=== PATIENT | female | born 1960 | race Caucasian/White ===

== ENCOUNTER 2025-06-28 07:55 | Outpatient (OUT) | payer MEDICARE, SELFPAY ==
--- OUTSIDE RECORDS SUMMARY | 2024-05-26 10:15 | XMS_ITS | Encounter Summary ---
Author Organization [facility] tem Address [facility] [id number] [address] [place] [address] Care Team Providers Care Hoist Worker Name Role Phone Cleveland Farah MD Primary Care Provider [phone] Reason for Visit * ReasonCommentsAnnual Exammedicare Encounter Details DateTypeDepartmentCare Team (Latest Contact Info)Aonsmzblwub73/06/2024 10:15 AM ESTOffice Visit [facility] [address] [place] [phone] Marcus Hernandez MD [address]. Provider retired 10/19/24 [place], [place] [phone] Routine general medical examination at a health care facility (Primary Dx); Acquired hypothyroidism; Pure hypercholesterolemia; Encounter for screening mammogram for malignant neoplasm of breast; Coronary artery disease involving [place] coronary artery of [place] heart without angina pectoris Social History Tobacco UseTypesPacks/DayYears UsedDateSmoking Tobacco: FormerCigarettes Smokeless Tobacco: NeverAlcohol UseStandard Drinks/WeekCommentsNot Currently0 (1 standard drink = 0.6 oz pure alcohol)Overall Financial Resource Strain (CARDIA) AnswerDate RecordedHow hard is it for you to pay for the very basics like food, housing, medical care, and heating?Not hard at all11/25/2024PHQ-2AnswerDate RecordedTotal Yqjye79507/26/2024PRAPARE - TransportationAnswerDate RecordedIn the past 12 months, has lack of transportation kept you from medical appointments or from getting medications?No11/25/2024In the past 12 months, has lack of transportation kept you from meetings, work, or from getting things needed for daily living?No11/25/2024UDIT-CAnswerDate RecordedQ1: How often do you have a drink containing alcohol?Never05/27/2025Q2: How many drinks containing alcohol do you have on a typical day when you are drinking?Patient does not drink 05/27/2025Q3: How often do you have six or more drinks on one occasion?Never 05/27/2025Housing InstabilityAnswerDate RecordedAre you worried or concerned that in the next two months you may not have stable housing that you own, rent or stay in as a part of a household?No11/25/2024hildcareAnswerDate Recorded BicmngmurUcqogon79/30/2019EmploymentAnswerDate RecordedEmploymentUnknown 12/17/2018Hunger ScreeningAnswerDate RecordedWithin the past 12 months we worried whether our food would run out before we got money to buy more.Never True05/27/2025Within the past 12 months the food we bought just didn't last and we didn't have money to get more.Never True05/27/2025Purpose - LifeAnswerDate RecordedPurpose and direction in ovprJftrgnr93/25/2021CommentsNoSex and Gender InformationValueDate RecordedSex Assigned at BirthNot on fileLegal Sex Poevbk6402/23/2015 11:53 AM EDTGender IdentityNot on fileSexual OrientationNot on filedocumented as of this encounter Last Filed Vital Signs Vital SignReadingTime TakenCommentsBlood Lmxcirqv063/8211 10:07 AM EST Uvnxr162905/26/2024 10:07 AM IBGTvaupunnygy05.8 ??C (98.2 ??F)05/26/2024 10:07 AM ESTRespiratory Drzj794507/26/2023 10:07 AM ESTOxygen Qezpxxbciu28%05/26/2024 10:07 AM ESTInhaled Oxygen Concentration--Vjgoty14 kg (161 lb)05/26/2024 10:07 AM EST Dfpode693.8 cm (5' 2.5 )05/26/2024 10:07 AM ESTBody Mass Index28.9805/26/2024 10:07 AM ESTdocumented in this encounter Functional Status * AUDIT-C ScoreAnswerDate of WohetgwphgAegcgb993 9:55 AM Libby Rose LPN * QuestionAnswerDate of AssessmentAuthorQ1: How often do you have a drink containing alcohol?Never05/27/2025 9:55 AM Libby Rose LPNQ2: How many drinks containing alcohol do you have on a typical day when you are drinking?Patient does not drink05/27/2025 9:55 AM Libby Rose LPNQ3: How often do you have six or more drinks on one occasion?Never05/27/2025 9:55 AM Libby Rose LPN documented as of this encounter Patient Instructions * Patient Instructions* Marcus Hernandez MD - 05/26/2024 10:15 AM EST Medicare Available Services Admin of Pneumococcal Vaccine: Recommended Admin of influenza vaccine: Recommended Admin of Hep B vaccine: Not applicable AAA ultrasound screening: Not applicable Screening mammography: Recommended Screening pap and pelvic exam: Not applicable Prostate cancer screening: Not applicable Colorectal cancer screening tests: Recommended DM outpatient self management training services: Not applicable Bone mass measurements: Not applicable Screening for glaucoma: Completed Cardiovascular screening blood tests: Completed DM screening blood tests: Completed Smoking cessation counseling: Completed Counseling to prevent tobacco use: Completed Screening/counseling to reduce alcohol misuse: Completed Behavioral therapy for obesity: Not applicable STI infection screening and behavioral counseling: Not applicable Medical nutrition therapy services for DM: Not applicable Medical nutrition therapy services: Not applicable documented in this encounter Progress Notes * Marcus Hernandez MD - 05/26/2024 10:15 AM EST Images from the original note were not included. [address] [facility] [phone] Subjective: Kristy Thurston is a 64 y.o. female who presents for a Medicare Annual Wellness exam. The following portions of the patient's history were reviewed and updated as appropriate: Health Risk Assessment, allergies, past medical history, past surgical history, social history, family history, and immunization history Accompanied by: self History Provided By: self Language and Other Communication Barriers: Primary Language Spoken: Kenyan Highest Level of Education Completed: high school diploma/GED Are You Happy With How Well You Read? yes Diet and Physical Activity: Current Prescribed Diet: Regular Diet How would you describe the condition of your mouth and teeth, including false teeth and dentures? Good Exercise Frequency: Daily Types of Exercise: Walking Health Risk Assessment: Cognitive Screening Do you have trouble remembering or recalling facts or events?: No Do family members or caregivers report that you have difficulty remembering things?: No Depression Screening Little interest or pleasure in doing things: Not at all Feeling down, depressed, or hopeless: Not at all Trouble falling or staying asleep, or sleeping too much: Not at all Feeling tired or having little energy: Not at all Poor appetite or overeating: Not at all Feeling bad about yourself - or that you are a failure or have let yourself or your family down: Not at all Trouble concentrating on things, such as reading the newspaper or watching television: Not at all Moving or speaking so slowly that other people could have noticed. Or the opposite - being so fidgety or restless that you have been moving around a lot more than usual: Not at all Thoughts that you would be better off , or of hurting yourself in some way: Not at all End of Life Planning Do you have a living will?: (!) No Do you have a durable power of cigar brander?: (!) No Hearing Assessment Do you strain or struggle to hear/understand conversations?: No Do you have trouble hearing the television or radio when others do not?: No Does your family ever voice concerns about your hearing?: No Do you wear hearing aid/s?: No Lifestyle Assessment Do you smoke or use smokeless tobacco?: No If you smoke or use smokeless tobacco, are you ready to quit?: NA Are you exposed to secondhand smoke?: No On average, how many drinks of alcohol do you consume in a week?: None Do you exercise for 30 or more minutes on average at least 3 days a week?: Always Do you have any tooth, denture, or oral problems?: No Do you snore or has anyone told you that you snore?: (!) Yes Do you try to eat a balanced diet?: Yes Do you experience leakage of urine, also known as urinary incontinence?: Never Do you have difficulty performing any of these activities? (check all that apply): None Do you have difficulty performing any of these activities? (check all that apply): None Personal Health During the past 4 weeks, how would you rate your overall health?: Very Good Do you understand how to take all of your medications?: Yes How confident are you that you can control and manage most of your health problems?: Very confident In the past 12 months, how many times have you been hospitalized?: (!) 2 or more Safety Assessment Do you have throw rugs on the floor?: No Do you feel safe at your home?: Yes Do you feel unsteady when walking?: No Are you having difficulty with driving?: No Do you have trouble seeing?: No What assistive device do you use? (check all that apply): None Vitals: Vitals: 05/26/24 1007 BP: 120/82 Pulse: 58 Resp: 18 Temp: 36.8 ??C (98.2 ??F) SpO2: 99% Body mass index is 28.98 kg/m??. History: Hospitalizations during the past 12 months: yes Patient Active Problem List Diagnosis Date Noted Arthritis of right hand 12/17/2018 Dyspepsia 12/17/2018 Acquired hypothyroidism 12/17/2018 Past Medical History: Diagnosis Date Hypothyroidism Past Surgical History: Procedure Laterality Date APPENDECTOMY HYSTERECTOMY History reviewed. No pertinent family history. Social History Tobacco Use Smoking status: Former Types: Cigarettes Smokeless tobacco: Never Substance Use Topics Alcohol use: Not Currently Allergies: Allergies Allergen Reactions No Known Drug Allergies Current Outpatient Medications Medication Sig Dispense Refill aspirin 81 mg Take 1 tablet (81 mg total) by mouth in the morning. atorvastatin (LIPITOR) 80 mg tablet Take 1 tablet (80 mg total) by mouth. levothyroxine (SYNTHROID, LEVOTHROID) 100 MCG tablet take 1 tablet every morning 90 tablet 3 ticagrelor (BRILINTA) 90 mg tablet Take 1 tablet (90 mg total) by mouth. carvediloL (COREG) 3.125 mg tablet Take 1 tablet (3.125 mg total) by mouth. No current facility-administered medications for this visit. There is no immunization history on file for this patient. Medication Adherence: Original 4-item Morisky Scale Do you ever forget to take your medicine? no Are you careless at times about taking your medicine? no When you feel better, do you sometimes stop taking your medicine? no Sometimes if you feel worse when you take your medicine, do you stop taking it? no Score: 4 Scoring: high-low; yes=0 no=1. Range 0-4. By reversing the wording of four questions about the way patients might experience drug omissions, the sum of yes answers would provide a composite measureof non-adherence. Higher scores indicate higher adherence. Cognitive Screening: Clock Drawing Test: Normal Mini-Cog: Patient Concerns for Cognitive Function: no Family Concerns for Cognitive Function: no Sensory Screening: Hearing right ear: normal Hearing left ear: normal Can you hear what a person says without seeing his/her face, if spoken in a normal voice from across the room? Yes Can you hear what a person says without seeing his/her face, if that person whispers to you from across a room? Yes Do you use a hearing aid: No Review of Systems: Review of Systems Objective: Physical Exam Office Visit on 12/18/2023 Component Date Value Ref Range Status Bedside glucose 12/18/2023 99 65 - 99 mg/dL Final Advanced Directives: Living Will: No DPA for Health Care: No Discussion and Summary: Risk findings: none Personalized Prevention Plan Services: Specialty Evaluation Advised:N/A Preventative Programs Recommended: N/A Prevention Counseling and Education Materials:N/A Diseases: N/A Immunizations: N/A Nutrition: N/A Activity/Exercise/Safety/Misc: N/A The above recommendations were discussed with the patient. Medicare Available Services: Medicare Available Services Admin of Pneumococcal Vaccine: Recommended Admin of influenza vaccine: Recommended Admin of Hep B vaccine: Not applicable AAA ultrasound screening: Not applicable Screening mammography: Recommended Screening pap and pelvic exam: Not applicable Prostate cancer screening: Not applicable Colorectal cancer screening tests: Recommended DM outpatient self management training services: Not applicable Bone mass measurements: Not applicable Screening for glaucoma: Completed Cardiovascular screening blood tests: Completed DM screening blood tests: Completed Smoking cessation counseling: Completed Counseling to prevent tobacco use: Completed Screening/counseling to reduce alcohol misuse: Completed Behavioral therapy for obesity: Not applicable STI infection screening and behavioral counseling: Not applicable Medical nutrition therapy services for DM: Not applicable Medical nutrition therapy services: Not applicable Copy to patient and copy in patient's medical record. Assessment/Plan: Kristy Thurston has been seen for a well visit today. Preventative recommendations were reviewed. Any chronic conditions that have been addressed include those listed below. Kristy was seen today for annual exam. Diagnoses and all orders for this visit: Routine general medical examination at a health care facility Acquired hypothyroidism Pure hypercholesterolemia Encounter for screening mammogram for malignant neoplasm of breast - Mammography screening bilateral with CAD; Future Coronary artery disease involving [place] coronary artery of [place] heart without angina pectoris Follow Up: Mammogram ordered Colonoscopy ordered Labs are utd * Libby Sierra LPN - 05/26/2024 10:15 AM EST Patient stated she would call to get the test scheduled. documented in this encounter Plan of Treatment DateTypeDepartmentCare Team (Latest Contact Info)Jbggceebygu38/07/2026 9:30 AM EDTOffice Visit [facility] [address] [place] [phone] Cleveland Farah MD [address] [place] [phone] 11/28/2025 9:[address] [facility] [address] [place] [address] 05/29/2026 10:00 AM ESTOffice Visit [facility] [address] [place] [phone] Cleveland Farah MD [address] [place] [address] NameTypePriorityAssociated DiagnosesOrder ScheduleMammography screening bilateral with CADImagingRoutine Encounter for screening mammogram for malignant neoplasm of breast 1 Occurrences starting 05/26/2024 until 05/26/2025documented as of this encounter Visit Diagnoses Diagnosis Routine general medical examination at a health care facility- Primary Acquired hypothyroidism Unspecified hypothyroidism Pure hypercholesterolemia Encounter for screening mammogram for malignant neoplasm of breast Coronary artery disease involving [place] coronary artery of [place] heart without angina pectoris documented in this encounter Additional Health Concerns AssessmentNoted TimePHQ-9 Depression Total Score: 9:00 AM EST documented as of this encounter Care Teams Team MemberRelationshipSpecialtyStart DateEnd Date Cleveland Farah MD [address] [place] [address] PCP - GeneralInternal Medicine11/26/24documented as of this encounter
--- OUTSIDE RECORDS SUMMARY | 2025-06-24 09:00 | XMS_ITS | Encounter Summary ---
Author Organization [facility] tem Address [facility] [id number] [address] [place] [address] Care Team Providers Care Evaluation Analyst Name Role Phone Cleveland Farah MD Primary Care Provider [phone] Encounter Details DateTypeDepartmentCare Team (Latest Contact Info)Fvkcixcoihm55/05/2025 9:00 AM EST - 06/24/2025 11:59 PM ESTHospital Encounter [facility] [address] [place] [phone] Age-related osteoporosis without current pathological fracture Discharge Disposition: Home Social History Tobacco UseTypesPacks/DayYears UsedDateSmoking Tobacco: FormerCigarettes Smokeless Tobacco: NeverAlcohol UseStandard Drinks/WeekCommentsNot Currently0 (1 standard drink = 0.6 oz pure alcohol)Overall Financial Resource Strain (CARDIA) AnswerDate RecordedHow hard is it for you to pay for the very basics like food, housing, medical care, and heating?Not hard at all11/25/2024PHQ-2AnswerDate RecordedTotal Dodly98907/26/2024PRAPARE - TransportationAnswerDate RecordedIn the past 12 months, [...] stay in as a part of a household?No5ChildcareAnswerDate Recorded KekhyqvbdIvcdscj37/30/2019EmploymentAnswerDate RecordedEmploymentUnknown 12/17/2018Hunger ScreeningAnswerDate RecordedWithin the past 12 months we worried whether our food would run out before we got money to buy more.Never True05/27/2025Within the past 12 months the food we bought just didn't last and we didn't have money to get more.Never True05/27/2025Purpose - LifeAnswerDate RecordedPurpose and direction in wfvcRlibzyn81/25/2021CommentsNoSex and Gender InformationValueDate RecordedSex Assigned at BirthNot on fileLegal Sex Toejin8602/23/2015 11:53 AM EDTGender IdentityNot on fileSexual OrientationNot on filedocumented as of this encounter Medications at Time of Discharge MedicationSigDispense QuantityRefillsLast FilledStart DateEnd Date aspirin 81 mg Take 1 tablet (81 mg total) by mouth in the morning. atorvastatin (LIPITOR) 80 mg tablet Take 1 tablet (80 mg total) by mouth before bedtime.02/07/2025 carvediloL (COREG) 3.125 mg tablet Take 1 tablet (3.125 mg total) by mouth. escitalopram (LEXAPRO) 10 mg tablet Take 1 tablet (10 mg total) by mouth in the morning. 90 tablet levothyroxine (SYNTHROID, LEVOTHROID) 75 MCG tablet Indications:Acquired hypothyroidismTake 1 tablet (75 mcg total) by mouth in the morning. 30 tablet losartan (COZAAR) 25 mg tablet Indications:Coronary artery disease involving [place] coronary artery of [place] heart without angina pectorisTake 1 tablet (25 mg total) by mouth in the morning. 90 tablet ticagrelor (BRILINTA) 90 mg tablet Take 1 tablet (90 mg total) by mouth.4documented as of this encounter Plan of Treatment DateTypeDepartmentCare Team (Latest Contact Info)Pkervldsqut87/07/2026 9:30 AM EDTOffice Visit [facility] [address] [place] [phone] Cleveland Farah MD [address] [place] [address] 11/28/2025 9:00 AM [address]TL[address] [facility] [address] [place] [address] 05/29/2026 10:00 AM ESTOffice Visit [facility] [address] [place] [phone] Cleveland Farah MD [address] [place] [phone] documented as of this encounter Procedures Procedure NamePriorityDate/TimeAssociated DiagnosisCommentsDEXA SCAN CENTRAL KWMOAVGMKqdqifn01/05/2025 9:16 AM EST Age-related osteoporosis without current pathological fracture documented in this encounter Results * Dexa scan central skeletal (06/24/2025 9:16 AM EST)Anatomical RegionLaterality ModalityN/ADXA ScanSpecimen (Source)Anatomical Location / LateralityCollection Method / VolumeCollection TimeReceived Time06/24/2025 3:59 PM EST Narrative 06/24/2025 4:00 PM EST DEXA SCAN CENTRAL SKELETAL: 06/24/2025 PROVIDED HISTORY: * ??65 years old Female * ??Age-related osteoporosis without current pathological fracture COMPARISON: 04/28/2011 TECHNIQUE: Dual X-ray Absorptiometry (DXA) was performed. FINDINGS: LUMBAR SPINE (L1-L4): BMD is 0.848 gm/cm2. T-score is -2.8. LEFT FEMORAL NECK: BMD is 0.808 gm/cm2. T-score is 1.7. LEFT TOTAL FEMUR: BMD is 0.859 gm/cm2. T-score is -1.2. RIGHT FEMORAL NECK: BMD is 0.794 gm/cm2. T-score is -1.8. RIGHT TOTAL FEMUR: BMD is 0.826 gm/cm2. T-score is -1.4. The estimated 10-year probability for a major osteoporotic fracture (utilizing FRAX) is 9.9% and for a hip fracture is 1.4%. IMPRESSION: The exam is considered to be osteopenic by the National Osteoporosis Foundation guidelines. Recommend consideration for initiation of therapy. WHO CLASSIFICATION: Normal: T-score -1.0 or above Osteopenia: T-score -1.1 to < 2.5 Osteoporosis: T-score -2.5 or lower Secondary causes of bone loss should be evaluated if clinically indicated since the etiology of lowBMD cannot be determined by BMD measurement alone. The current National Osteoporosis Foundation guide recommends treating patients with FRAX ten year risk scores of greater than or equal to 3% for hip fracture or greater than or equal to 20% for major osteoporotic fracture, to reduce their fracture risk. Finalized by Ruby oBurne MD on 06/24/2025 4:00 PM Procedure Note Ruby Bourne MD - 06/24/2025 DEXA SCAN CENTRAL SKELETAL: 06/24/2025 PROVIDED HISTORY: * 65 years old Female * Age-related osteoporosis without current pathological fracture COMPARISON: 04/28/2011 TECHNIQUE: Dual X-ray Absorptiometry (DXA) was performed. FINDINGS: LUMBAR SPINE (L1-L4): BMD is 0.848 gm/cm2. T-score is -2.8. LEFT FEMORAL NECK: BMD is 0.808 gm/cm2. T-score is 1.7. LEFT TOTAL FEMUR: BMD is 0.859 gm/cm2. T-score is -1.2. RIGHT FEMORAL NECK: BMD is 0.794 gm/cm2. T-score is -1.8. RIGHT TOTAL FEMUR: BMD is 0.826 gm/cm2. T-score is -1.4. The estimated 10-year probability for a major osteoporotic fracture(utilizing FRAX) is 9.9% and for a hip fracture is 1.4%. IMPRESSION: The exam is considered to be osteopenic by the National OsteoporosisFoundation guidelines. Recommend consideration for initiation oftherapy. WHO CLASSIFICATION: Normal: T-score -1.0 or above Osteopenia: T-score -1.1 to < 2.5 Osteoporosis: T-score -2.5 or lower Secondary causes of bone loss should be evaluated if clinically indicatedsince the etiology of low BMD cannot be determined by BMD measurementalone. The current National Osteoporosis Foundation guide recommends treatingpatients with FRAX ten year risk scores of greater than or equal to 3% forhip fracture or greater than or equal to 20% for major osteoporoticfracture, to reduce their fracture risk. Finalized by Ruby Bourne MD on 06/24/2025 4:00 PM Authorizing ProviderResult TypeResult StatusCleveland Farah MDIMG DXA ORDERABLES Final Result documented in this encounter Visit Diagnoses Diagnosis Age-related osteoporosis without current pathological fracture documented in this encounter Additional Health Concerns AssessmentNoted TimePHQ-9 Depression Total Score: 11:02 AM ESTA Body Mass Index follow-up plan has been documented for the hrmqgvd5705/27/2025 10:26 AM ESTdocumented as of this encounter Care Teams Team MemberRelationshipSpecialtyStart DateEnd Date Cleveland Farah MD [address] [place] [phone] PCP - GeneralInternal Medicine11/26/24documented as of this encounter
--- OUTSIDE RECORDS SUMMARY | 2025-06-28 08:09 | XMS_ITS | Clinical Summary ---
Author Organization [employer] Address [id number] [address] [place] [address] Care Team Providers Care Potato Peeler Name Role Phone Cleveland Farah MD Primary Care Provider [phone] Allergies Active AllergyReactionsCriticalityNoted DateCommentsNo Known Drug Allergies 09/01/2017 Medications MedicationSigDispense QuantityRefillsLast FilledStart DateEnd DateStatus aspirin 81 mg Take 1 tablet (81 mg total) by mouth in the morning.Active ticagrelor (BRILINTA) 90 mg tablet Take 1 tablet (90 mg total) by mouth.4Active carvediloL (COREG) 3.125 mg tablet Take 1 tablet (3.125 mg total) by mouth.Active escitalopram (LEXAPRO) 10 mg tablet Take 1 tablet (10 mg total) by mouth in the morning. 90 tablet 5Active atorvastatin (LIPITOR) 80 mg tablet Take 1 tablet (80 mg total) by mouth before bedtime.5Active levothyroxine (SYNTHROID, LEVOTHROID) 75 MCG tablet Indications:Acquired hypothyroidismTake 1 tablet (75 mcg total) by mouth in the morning. 30 tablet 5Active losartan (COZAAR) 25 mg tablet Indications:Coronary artery disease involving [place] coronary artery of [place] heart without angina pectorisTake 1 tablet (25 mg total) by mouth in the morning. 90 tablet 5Active levothyroxine (SYNTHROID, LEVOTHROID) 50 MCG tablet Indications:Acquired hypothyroidismTake 1 tablet (50 mcg total) by mouth in the morning. 90 tablet 5Discontinued(Dose adjustment) losartan (COZAAR) 25 mg tablet Indications:Coronary artery disease involving [place] coronary artery of [place] heart without angina pectorisTake 1 tablet (25 mg total) by mouth in the morning.Discontinued(Reorder) Active Problems ProblemNoted DateDiagnosed DatePure wmbubgkzbtmlvtfhxskt36/06/2024Routine general medical examination at a health care pkuvlgtp75/06/2024Encounter for screening mammogram for malignant neoplasm of phuoql1405/26/2024oronary artery disease involving [place] coronary artery of [place] heart without angina pectoris 05/26/2024rthritis of right hand12/17/20180779Veklaovng48/30/2019Acquired qhywotbnpiooal47/30/2019 Encounters DateTypeDepartmentCare MhufQejjbzrtxvz85/05/2025 9:00 AM EST - 06/24/2025 11:59 PM ESTHospital Encounter [facility] [address] [place] [phone] Age-related osteoporosis without current pathological fracture Discharge Disposition: Home06/22/20251382Jivvle23/17/2025[facility] [address] [phone] Libby Sierra LPN Coronary artery disease involving [place] coronary artery of [place] heart without angina tvolebcv99/14/2025Refill [facility] [address] [phone] Libby Sierra LPN Coronary artery disease involving [place] coronary artery of [place] heart without angina iyfwqisd46/14/2025Refill [facility] [address] [place], [place] [address] [place] [address] Libby Sierra LPN 05/30/2025Results Follow-Up [facility] [address] [place] [phone] Cleveland Farah MD TSH, Hepatic function panel, CBC auto differential, Dexa scan central skeletal 05/27/2025 10:00 AM ESTOffice Visit [facility] [address] [place] [address] Cleveland Farah MD Encounter for Medicare annual wellness exam (Primary Dx); Coronary artery disease involving [place] coronary artery of [place] heart without angina pectoris; Acquired hypothyroidism; Age-related osteoporosis without current pathological /06/2025Travel 05/06/2025 11:00 AM EDTSupport Visit [facility] [address] [place] [address] Maile Garcia LD 05/04/20257992Mhlmls34/01/2025 9:30 AM EDTClinical Support [facility] Medicine [address] [place] [phone] BP check (Primary Dx)04/20/20257557Osikst22/29/0705Xzcfdm32/24/2025 9:15 AM EDT Office Visit [facility] [address] [place] [phone] Cleveland Farah MD Hepatic steatosis (Primary Dx); Coronary artery disease involving [place] coronary artery of [place] heart without angina pectoris; Primary nigncrgfpedw92/23/2025Travelfrom Last 3 Months Immunizations No known immunizations Social History Tobacco UseTypesPacks/DayYears UsedDateSmoking Tobacco: FormerCigarettes Smokeless Tobacco: Never Tobacco Cessation:Counseling Given: Not Answered Alcohol UseStandard Drinks/WeekCommentsNot Currently0 (1 standard drink = 0.6 oz pure alcohol)Overall Financial Resource Strain (CARDIA)AnswerDate RecordedHow hard is it for you to pay for the very basics like food, housing, medical care, and heating?Not hard at all11/25/2024PHQ-2AnswerDate RecordedTotal Score0 05/26/2025PRAPARE - TransportationAnswerDate RecordedIn the past 12 months, has lack of transportation kept you from medical appointments or from getting medications?No11/25/2024In the past 12 months, has lack of transportation kept you from meetings, work, or from getting things needed for daily living?No 5AUDIT-CAnswerDate RecordedQ1: How often do you have a drink containing alcohol?Never05/27/2025Q2: How many drinks containing alcohol do you have on a typical day when you are drinking?Patient does not drink05/27/2025Q3: How often do you have six or more drinks on one occasion?Never05/27/2025Housing InstabilityAnswerDate RecordedAre you worried or concerned that in the next two months you may not have stable housing that you own, rent or stay in as a part of a household?No5ChildcareAnswerDate RecordedChildcareUnknown 12/17/2018EmploymentAnswerDate AjxqqkmtCuyabcdezmWmkbxtt01/30/2019Hunger ScreeningAnswerDate RecordedWithin the past 12 months we worried whether our food would run out before we got money to buy more.Never True05/27/2025Within the past 12 months the food we bought just didn't last and we didn't have money to get more.Never True05/27/2025Purpose - LifeAnswerDate RecordedPurpose and direction in kxwqKcggvdv06/25/2021CommentsNoSex and Gender Information ValueDate RecordedSex Assigned at BirthNot on fileLegal KlhTsnllr43/06/2015 11:53 AM EDTGender IdentityNot on fileSexual OrientationNot on file Last Filed Vital Signs Vital SignReadingTime TakenCommentsBlood Jvqylaeg868/80107/27/2024 10:23 AM EST Gylql044705/27/2025 9:51 AM VRUSvaqgcmasrg45.8 ??C (98.2 ??F)05/26/2024 10:07 AM ESTRespiratory Bvum230807/27/2024 9:51 AM ESTOxygen Gegdbvwtgc57%05/27/2025 9:51 AM ESTInhaled Oxygen Concentration--Zqajaw69.6 kg (171 lb)05/27/2025 9:51 AM EST Jysbpd406 cm (5' 1.42 )05/27/2025 9:51 AM ESTBody Mass Index31.8705/27/2025 9:51 AM EST Plan of Treatment DateTypeDepartmentCare Team (Latest Contact Info)Obqqzhawtcd22/07/2026 9:30 AM EDTOffice Visit [facility] [address] [place] [phone] Cleveland Farah MD [address] [place], [place] [phone] 11/28/2025 9:00 AM EDTLab [facility] - Lab [address] [place] [phone] 05/29/2026 10:00 AM ESTOffice Visit [facility] [address] [place] [phone] Cleveland Farah MD [address] [place] [phone] Health MaintenanceDue DateLast DoneCommentsDTaP,Tdap and Td Vaccines (1 - Tdap) 02/18/19773518Wywrseimx20/01/1998Zoster (Shingles) Vaccine (1 of 2)02/19/2008 Influenza Pgjuoyk6403/21/2025Statin Use: Czoldcjeehehxe67 Depression Srbskwaki33Fall Risk Qppootxpc87 Adult BMI Follow Up [facility] BMI Juprwrrbv85/07/2026 05/27/2025Medicare Annual Wellness Visit, 05/26/2024, 03/06/2023Tobacco Bhiuigtmu48olonoscopy, 08/12/2024RSV ( or age 60+ yrs) (1 - 1-dose 75+ series)2033 Medical Devices Not on file Procedures Procedure NamePriorityDate/TimeAssociated DiagnosisCommentsDEXA SCAN CENTRAL UXPNXRFZGppumzi45/05/2025 9:16 AM EST Age-related osteoporosis without current pathological fracture CBC WITH AUTO JINHHPEOKFUPLmgnoac24/07/2025 11:03 AM EST Coronary artery disease involving [place] coronary artery of [place] heart without angina pectoris LIVER RUFPZUnvklgh86/07/2025 11:03 AM EST Transaminitis BHALfefogx21/07/2025 11:03 AM EST Acquired hypothyroidism AMB REFERRAL TO DIABETIC IDWWHJRLISefcqqw96/17/2025 11:57 AM EDTHM COLONOSCOPY Nrwmjta1808/12/2024from Last 3 Months or Most Recently Relevant to Health Maintenance Results * Dexa scan central skeletal (06/24/2025 [...] Ruby Bourne MD on 06/24/2025 4:00 PM Procedure Note [...] 4:00 PM Authorizing ProviderResult TypeResult StatusCleveland Farah MDAyde DXA ORDERABLES Final Result * (ABNORMAL) CBC auto differential (05/27/2025 11:03 AM EST)ComponentValueRef RangeTest MethodAnalysis TimePerformed AtPathologist SignatureWBC7.24 - 11 X10^9/L107/27/2024 2:36 PM [facility] LABORATORYRBC Count4.15 3.8 - 5.2 X10^12/L107/27/2024 2:36 PM [facility] Sousmogzuo07.811.7 - 15.5 g/dL05/27/2025 2:36 PM [facility] GWYPKAALVTHzkinrpxzx92.135 - 47 %05/27/2025 2:36 PM [facility] IMDSPOZJROSES0806 - 100 fL05/27/2025 2:36 PM [facility] QNHLWMHJVEMHD53.327 - 34 pg05/27/2025 2:36 PM [facility] RENMFZVKOSBJNS15.732 - 36 g/dL05/27/2025 2:36 PM [facility] XVRNFQQYYAEKN83.111.5 - 15 %05/27/2025 2:36 PM [facility] LABORATORYPlatelet Qspsc300(H)150 - 450 X10^9/L107/27/2024 2:36 PM [facility] LABORATORYMPV7.07 - 12 fL05/27/2025 2:36 PM [facility] LABORATORYNeutrophils %71.5%05/27/2025 2:36 PM [facility] LABORATORYLymphocytes %17.1%05/27/2025 2:36 PM [facility] LABORATORYMonocytes %6.6%05/27/2025 2:36 PM [facility] LABORATORYEosinophils %3.9%05/27/2025 2:36 PM [facility] LABORATORYBasophils %0.9%05/27/2025 2:36 PM [facility] LABORATORYNeutrophils Absolute (A)5.11.5 - 6.6 X10^9/L 05/27/2025 2:36 PM [facility] LABORATORYLymphocytes Absolute 1.21.0 - 3.5 X10^9/L107/27/2024 2:36 PM [facility] Monocytes Absolute0.50.0 - 0.9 X10^9/L107/27/2024 2:36 PM [facility] LABORATORYEosinophils Absolute0.30.0 - 0.4 X10^9/L107/27/2024 2:36 PM [facility] LABORATORYBasophils Absolute0.10.0 - 0.2 X10^9/L 05/27/2025 2:36 PM [facility] LABORATORYDifferential Type AUTOMATED RPOHQODBBEFO74/07/2025 2:36 PM [facility] LABORATORYSpecimen (Source)Anatomical Location / LateralityCollection Method / VolumeCollection TimeReceived TimeBloodVenous blood / UnknownVenipuncture / Zdfrmdz9105/27/2025 11:03 AM EST05/27/2025 11:03 AM EST Narrative Authorizing ProviderResult TypeResult StatusCleveland BA BLOOD ORDERABLESFinal ResultPerforming OrganizationAddressCity/State/ZIP CodePhone Number [facility] [address] [place] [address], * (ABNORMAL) TSH (05/27/2025 11:03 AM EST)ComponentValueRef RangeTest Method Analysis TimePerformed AtPathologist OlppbtgxfZRP78.57(H)0.49 - 4.67 uIU/mL 05/27/2025 3:03 PM [facility] LABORATORYSpecimen (Source) Anatomical Location / LateralityCollection Method / VolumeCollection Time Received TimeBloodVenous blood / UnknownVenipuncture / Dbatqlr0505/27/2025 11:03 AM EST05/27/2025 11:03 AM EST Narrative Authorizing ProviderResult TypeResult StatusCleveland BA BLOOD ORDERABLESFinal ResultPerforming OrganizationAddressCity/State/ZIP CodePhone Number [facility] [address] [place] [address], [place] [phone] * (ABNORMAL) Hepatic function panel (05/27/2025 11:03 AM EST)ComponentValueRef RangeTest MethodAnalysis TimePerformed AtPathologist SignatureTOTAL PROTEIN6.7 6.0 - 8.0 g/dL05/27/2025 3:42 PM [facility] LABORATORYALBUMIN 4.03.2 - 5.3 g/dL05/27/2025 3:42 PM [facility] BILIRUBIN,TOTAL0.40.3 - 1.2 mg/dL05/27/2025 3:42 PM [facility] LABORATORYALKALINE KMWJTEWODMW3633 - 130 U/L107/27/2024 3:42 PM EST [facility] HKXLSYTXQDAKY51(H)<=41 U/L107/27/2024 3:42 PM EST [facility] CZJNPSZZREFTM93(H)<=31 U/L107/27/2024 3:42 PM EST [facility] LABORATORYBILIRUBIN,DIRECT0.1<=0.4 mg/dL05/27/2025 3:42 PM [facility] LABORATORYSpecimen (Source)Anatomical Location / LateralityCollection Method / VolumeCollection TimeReceived Time BloodVenous blood / UnknownVenipuncture / Acqurbp7805/27/2025 11:03 AM EST 05/27/2025 11:03 AM EST Narrative Authorizing ProviderResult TypeResult StatusCleveland Farah MDLAB BLOOD ORDERABLESFinal ResultPerforming OrganizationAddressCity/State/ZIP CodePhone Number [facility] [address] [place] [address], [place] [phone] * [facility] (05/06/2025 11:57 AM EDT) Narrative Authorizing ProviderResult TypeResult StatusCleveland Farah MDOUTPATIENT REFERRAL ORDERABLESFinal ResultPerforming OrganizationAddressCity/State/ZIP CodePhone Number MANUALLY TRANSCRIBED RESULTS * [facility] COLONOSCOPY (08/12/2024)Specimen (Source)Anatomical Location / Laterality Collection Method / VolumeCollection TimeReceived Time08/12/2024 Narrative Authorizing ProviderResult TypeResult StatusScanning Provider ExternalHEALTH MAINTENANCEFinal ResultPerforming OrganizationAddressCity/State/ZIP CodePhone Number MANUALLY TRANSCRIBED RESULTS from Last 3 Months or Most Recently Relevant to Health Maintenance Insurance Care Teams Team MemberRelationshipSpecialtyStart DateEnd Date Cleveland Farah MD [facility] [place] [address] PCP - GeneralInternal Medicine11/26/24
--- OUTSIDE RECORDS SUMMARY | 2025-06-28 08:09 | XMS_ITS | Encounter Summary ---
Author Organization [employer] tem Address [facility] [id number] [address] [place] [address] Care Team Providers Care Ambulette Driver Name Role Phone Cleveland Farah MD Primary Care Provider [phone] Encounter Details DateTypeDepartmentCare Team (Latest Contact Info)Xbtchscrbkf15/03/2025Travel Social History Tobacco UseTypesPacks/DayYears UsedDateSmoking Tobacco: FormerCigarettes Smokeless Tobacco: NeverAlcohol UseStandard Drinks/WeekCommentsNot Currently0 (1 standard drink = 0.6 oz pure alcohol)Overall Financial Resource Strain (CARDIA) AnswerDate RecordedHow hard is it for you to pay for the very basics like food, housing, medical care, and heating?Not hard at all11/25/2024PHQ-2AnswerDate RecordedTotal Iduyx21807/26/2024PRAPARE - TransportationAnswerDate RecordedIn the past 12 months, [...] as a part of a household?No5ChildcareAnswerDate Recorded PggqeognbGvifirw57/30/2019EmploymentAnswerDate RecordedEmploymentUnknown 12/17/2018Hunger ScreeningAnswerDate RecordedWithin the past 12 months we worried whether our food would run out before we got money to buy more.Never True05/27/2025Within the past 12 months the food we bought just didn't last and we didn't have money to get more.Never True05/27/2025Purpose - LifeAnswerDate RecordedPurpose and direction in goyvQdensfq61/25/2021CommentsNoSex and Gender InformationValueDate RecordedSex Assigned at BirthNot on fileLegal Sex Tfndud0002/23/2015 11:53 AM EDTGender IdentityNot on fileSexual OrientationNot on filedocumented as of this encounter Plan of Treatment DateTypeDepartmentCare Team (Latest Contact Info)Ydjwngjbdtl99/07/2026 9:[address] [facility] [address] [place] [phone] Cleveland Farah MD [address] [place] [address] 11/28/2025 9:00 AM EDTLab [facility] - Lab [address] [place] [phone] 05/29/2026 10:[address] [facility] [address] [place] [phone] Cleveland Farah MD [address] [place] [address] documented as of this encounter Visit Diagnoses Not on filedocumented in this encounter Additional Health Concerns AssessmentNoted TimePHQ-9 Depression Total Score: 11:02 AM ESTA Body Mass Index follow-up plan has been documented for the tgvlcjk3705/27/2025 10:26 AM ESTdocumented as of this encounter Care Teams Team MemberRelationshipSpecialtyStart DateEnd Date Cleveland Farah MD [address] [place] [address] PCP - GeneralInternal Medicine11/26/24documented as of this encounter
--- OUTSIDE RECORDS SUMMARY | 2025-06-28 08:09 | XMS_ITS | Encounter Summary ---
Author Organization [facility] Address [id number] [address] [place] [address] Care Team Providers Care Utility Pipe Layer Name Role Phone Cleveland Farah MD Primary Care Provider [phone] Encounter Details DateTypeDepartmentCare Team (Latest Contact Info)Wnuziejqvvk60/10/2025Results Follow-Up [facility] [address] [place] [phone] [place] [address] [place] [address] [phone] TSH, Hepatic function panel, CBC auto differential, Dexa scan central skeletal Social History Tobacco UseTypesPacks/DayYears UsedDateSmoking Tobacco: FormerCigarettes Smokeless Tobacco: NeverAlcohol UseStandard Drinks/WeekCommentsNot Currently0 (1 standard drink = 0.6 oz pure alcohol)Overall Financial Resource Strain (CARDIA) AnswerDate RecordedHow hard is it for you to pay for the very basics like food, housing, medical care, and heating?Not hard at all11/25/2024PHQ-2AnswerDate RecordedTotal Ktpki41907/26/2024PRAPARE - TransportationAnswerDate RecordedIn the past 12 months, [...] as a part of a household?No5ChildcareAnswerDate Recorded PrayfhssxYddmslf84/30/2019EmploymentAnswerDate RecordedEmploymentUnknown 12/17/2018Hunger ScreeningAnswerDate RecordedWithin the past 12 months we worried whether our food would run out before we got money to buy more.Never True05/27/2025Within the past 12 months the food we bought just didn't last and we didn't have money to get more.Never True05/27/2025Purpose - LifeAnswerDate RecordedPurpose and direction in vflwBasbtka18/25/2021CommentsNoSex and Gender InformationValueDate RecordedSex Assigned at BirthNot on fileLegal Sex Cueptp6602/23/2015 11:53 AM EDTGender IdentityNot on fileSexual OrientationNot on filedocumented as of this encounter Miscellaneous Notes * Telephone Encounter - Cleveland Farah MD - 05/30/2025 8:22 AM EST Synthroid dose increased to 75 mcg. Pt asymptomatic. Will recheck after 6 months. documented in this encounter Plan of Treatment DateTypeDepartmentCare Team (Latest Contact Info)Dvmtvukblqw27/07/2026 9:30 AM EDTOffice Visit [facility] [address] [place] [phone] Cleveland Farah MD [address] [place] [address] 11/28/2025 9:00 AM EDTLab [facility] - Lab [address] [place] [address] 05/29/2026 10:00 AM ESTOffice Visit [facility] [place] [address] Cleveland Farah MD [address] [place] [phone] NameTypePriorityAssociated DiagnosesOrder ScheduleTSHLabRoutine Acquired hypothyroidism Expected: 11/27/2025 (Approximate), Expires: 05/30/2026documented as of this encounter Visit Diagnoses Diagnosis Acquired hypothyroidism Unspecified hypothyroidism documented in this encounter Additional Health Concerns AssessmentNoted TimePHQ-9 Depression Total Score: 11:02 AM ESTA Body Mass Index follow-up plan has been documented for the tbdmkhz7505/27/2025 10:26 AM ESTdocumented as of this encounter Care Teams Team MemberRelationshipSpecialtyStart DateEnd Date Cleveland Farah MD [address] [place] [address] [phone] PCP - GeneralInternal Medicine11/26/24documented as of this encounter
--- OUTSIDE RECORDS SUMMARY | 2025-06-28 08:09 | XMS_ITS | Clinical Summary ---
Author Organization [facility] Address [address] [place] [address] Phone Care Team Providers Care Mortar Worker Name Role Phone Unavailable Primary Care Provider Unavailabl e Social History Tobacco UseTypesPacks/DayYears UsedDateSmoking Tobacco: Never Assessed CommentsUnknownSex and Gender InformationValueDate RecordedSex Assigned at Not on fileLegal SnqLuxkfc09/25/2022 10:25 AM ESTGender IdentityNot on file Sexual OrientationNot on file Plan of Treatment Not on file
[2025-06-28 12:22] LABS: Alanine Aminotransferase 76 U/L (14-59); Aspartate Amino Transferase 55 U/L (15-37); Cholesterol 147 mg/dL (<=200); HDL Cholesterol 75 mg/dL (40-60); Triglycerides 38 mg/dL (<=150); VLDL CHOLESTEROL 7.6 mg/dL
== END 2025-06-28 07:56 | disposition home or self-care (01) ==
LOC: LAB 08:05
PROVIDERS: PCP Student in an Organized Health Care Education/Training Program
DX: E78.5 Hyperlipidemia, unspecified (principal); I25.10 Atherosclerotic heart disease of native coronary artery without angina pectoris; I25.84 Coronary atherosclerosis due to calcified coronary lesion
CPT/HCPCS: 36415; 80061; 84450; 84460